=== PATIENT | female | born 1955 | race Caucasian/White ===

== ENCOUNTER 2019-01-24 09:43 | Outpatient (CLI) | payer MEDICARE ==
--- NOTE | 2019-01-24 11:56 | BD ---
DEXA BONE DENSITY STUDY: HISTORY: Postmenopausal. LUMBAR SPINE BMD (g/cm2) T-SCORE L1 0.742 -2.3 L2 0.776 -2.3 L3 0.836 -2.3 L4 0.698 -3.3 TOTAL 0.761 -2.6 LEFT FEMORAL NECK 0.598 -2.3 TOTAL 0.647 -2.4 IMPRESSION: Osteoporosis of the lumbar spine and osteopenia of the left femoral neck with values bordering in the osteoporosis range. POS: [facility]
--- NOTE | 2019-02-14 15:02 | MMO ---
Bilateral MAMMO Bilat Screen [facility]. CLINICAL HISTORY: Patient is 63 years old and is seen for screening. The patient has no family history of breast cancer. The patient has no personal history of cancer. VIEWS: The views performed were: bilateral craniocaudal with tomosynthesis and bilateral mediolateral oblique with tomosynthesis. FILMS COMPARED: The present examination has been compared to prior imaging studies performed at [facility] on 05/22/2015, 06/14/2016 and 07/25/2017. This study has been interpreted with the assistance of computer-aided detection. MAMMOGRAM FINDINGS: There are scattered fibroglandular densities. There are no suspicious masses, suspicious calcifications, or new areas of architectural distortion. IMPRESSION: THERE IS NO MAMMOGRAPHIC EVIDENCE OF MALIGNANCY. A ROUTINE FOLLOW-UP MAMMOGRAM IN 1 YEAR IS RECOMMENDED. THE RESULTS OF THIS EXAM WERE SENT TO THE PATIENT. ACR BI-RADS Category 1 - Negative MAMMOGRAPHY NOTE: 1. A negative mammogram report should not delay a biopsy if a dominant of clinically suspicious mass is present. 2. Approximately 10% to 15% of breast cancers are not detected by mammography. 3. Adenosis and dense breasts may obscure an underlying neoplasm. Reported by: MIREYA ANDERSON MD Electonically Signed: [id number]
== END 2019-01-24 09:44 | disposition home or self-care (01) ==
LOC: BICMAMMO 09:43
PROVIDERS: ATTEND Internal Medicine
DX: Z12.31 Encounter for screening mammogram for malignant neoplasm of breast (principal); M81.0 Age-related osteoporosis without current pathological fracture; M85.852 Other specified disorders of bone density and structure, left thigh
CPT/HCPCS: 77063; 77067; 77080

== ENCOUNTER 2019-03-06 18:58 | Emergency (ER) | payer MEDICARE ==
[2019-03-06] MEDS ORDERED: Lidocaine 1% w/Epinephrine 1:100K 20 ML VIAL ONE (19:29)
--- NOTE | 2019-03-06 20:26 | RAD ---
[facility] FIVE VIEWS: 03/06/19 HISTORY: Fell with laceration to chin. There are no signs of fracture or dislocation. Postoperative changes in the right orbital and frontal regions are noted. Previous craniotomy is seen. IMPRESSION: No acute injury. POS: [facility]
== END 2019-03-06 20:39 | disposition home or self-care (01) ==
LOC: ERS 18:58
DX: S01.81XA Laceration without foreign body of other part of head, initial encounter (principal); I10 Essential (primary) hypertension; Z79.899 Other long term (current) drug therapy; W17.89XA Other fall from one level to another, initial encounter
CPT/HCPCS: 12051; 70110

== ENCOUNTER 2021-08-19 11:35 | Outpatient (CLI) | payer MEDICARE | END 2021-08-19 11:36 | disposition home or self-care (01) | LOC: BICMAMMO 11:35 | PROVIDERS: ATTEND Internal Medicine | DX: Z12.31 Encounter for screening mammogram for malignant neoplasm of breast (principal) | CPT/HCPCS: 77063; 77067 ==

== ENCOUNTER 2021-09-21 08:21 | Emergency (ER) | payer MEDICARE ==
[2021-09-21] MEDS ORDERED: HYDROcodone/Acetaminophen 5/325 mg Tablet ONE (09:47)
== END 2021-09-21 10:20 | disposition home or self-care (01) ==
LOC: ERS 08:21
DX: R07.89 Other chest pain (principal); I10 Essential (primary) hypertension; W18.39XA Other fall on same level, initial encounter; W22.8XXA Striking against or struck by other objects, initial encounter
CPT/HCPCS: 71046; 93005

== ENCOUNTER 2022-09-30 09:47 | Outpatient (CLI) | payer MEDICARE | END 2022-09-30 09:48 | disposition home or self-care (01) | LOC: BICMAMMO 09:47 | PROVIDERS: ATTEND Internal Medicine | DX: Z12.31 Encounter for screening mammogram for malignant neoplasm of breast (principal) | CPT/HCPCS: 77063; 77067 ==